=== PATIENT | female | born 1965 | race Caucasian/White ===

== ENCOUNTER 2017-04-04 15:24 | Inpatient (IN) | payer OTHER ==
[2017-04-04 17:31] VITALS: BMI 20.9
--- NOTE | 2017-04-04 20:06 | HP ---
COWS - Scale Resting Pulse: 0= [place] 80 or Below Sweatin= Chills/Flushing Restless Observation: 3= Extraneous Movement Pupil Size: 1= Pupils >than Normal Bone or Joint Aches: 2= Severe Diffuse Aches Runny Nose/ Eye Tearin= Runny Nose/Eyes GI Upset > 30mins: 1= Stomach Cramp Tremor Observation: 2= Slight Tremor Visible Yawning Observation: 2= >3x During Session Anxiety or Irritability: 2=Irritable/Anxious Goose Flesh Skin: 0=Smooth Skin COWS Score: 16 Admission [facility] Chief Complaint: withdrawal sx Allergies/Adverse Reactions: Allergies Allergy/AdvReac Type Severity Reaction Status Date / Time No Known Allergies Allergy Verified 04/04/17 18:24 History of Present Illness: 52 years old female with long history of opium nicotine dependence has diabetes weight loss and depression is admitted to detox Exam Limitations: No Limitations - Ebola screening Have you traveled outside of the country in the last 21 days: No (N) Have you had contact with anyone from an Ebola affected area: No Have you been sick,other than usual withdrawal symptoms: No Do you have a fever: No - Review of Systems Constitutional: Loss of Appetite, Changes in sleep, Unintentional Wgt. Loss EENT: reports: Blurred Vision (need eye glasses) Respiratory: reports: SOB with Exertion, Productive cough (yellowish) Cardiac: reports: No Symptoms Reported GI: reports: Constipated, Poor Appetite, Poor Fluid Intake, Abdominal cramping : reports: No Symptoms Reported Musculoskeletal: reports: Back Pain, Joint Pain, Muscle Pain, Neck Pain Integumentary: reports: Change in Color (both inner elbows) Neuro: reports: Seizure (12/2016 treated in er no treatment), Tremors Endocrine: reports: No Symptoms Reported Hematology: reports: No Symptoms Reported Psychiatric: reports: Judgement Intact, Orientated x3, Anxious, Depressed Other Systems: Reviewed and Negative Patient History - Patient Medical History Hx Anemia: No Hx Asthma: No Hx Chronic Obstructive Pulmonary Disease (COPD): Yes Hx Cancer: No Hx Cardiac Disorders: No Hx Congestive Heart Failure: No Hx Hypertension: No Hx Hypercholesterolemia: No Hx Pacemaker: No HX Cerebrovascular Accident: No Hx Seizures: Yes (no treatment) Hx Dementia: No Hx Diabetes: Yes (NIDDM) Hx Gastrointestinal Disorders: No Hx Liver Disease: No Hx Genitourinary Disorders: No Hx Sexually Transmitted Disorders: No Hx Renal Disease (ESRD): No Hx Thyroid Disease: No Hx Human Immunodeficiency Virus (HIV): No Hx Hepatitis C: No Hx Depression: Yes Hx Suicide Attempt: No Hx Bipolar Disorder: No Hx Schizophrenia: No - Patient Surgical History Past Surgical History: Yes Hx Neurologic Surgery: No Hx Cataract Extraction: No Hx Cardiac Surgery: No Hx Lung Surgery: No Hx Breast Surgery: No Hx Breast Biopsy: No Hx Abdominal Surgery: No Hx Appendectomy: No Hx Cholecystectomy: No Hx Genitourinary Surgery: No Hx Section: No Hx Orthopedic Surgery: No Hx Hysterectomy: Yes (1999) Other Surgical History: uterine ca/hysterectomy in 2002 Anesthesia Reaction: No - PPD History Previous Implant?: Yes Documented Results: Negative w/proof Implanted On Prior [facility] Admission?: Yes Date: 10/06/12 PPD to be Administered?: Yes - Reproductive History Patient is a Female of Child Bearing Age (11 -55 yrs old): Yes Last Menstrual Period: 04/04/00 Patient : No - Smoking Cessation Smoking history: Current every day smoker Have you smoked in the past 12 months: Yes Aproximately how many cigarettes per day: 20 Cigars Per Day: 0 Hx Chewing Tobacco Use: No Initiated information on smoking cessation: Yes 'Breaking Loose' booklet given: 04/04/17 - Substance & Tx. History Hx Alcohol Use: No Hx Substance Use: Yes Substance Use Type: Cocaine, Opiates Hx Substance Use Treatment: Yes (2012) - Substances Abused Heroin Route: Injection Frequency: Daily Amount used: 10 BAGS Age of first use: 30 Date of Last Use: 04/03/17 Cocaine Route: Injection Frequency: Daily Amount used: 1 BAG Age of first use: 51 Date of Last Use: 04/03/17 Family Disease History - Family Disease History Family Disease History: Diabetes: Mother, Heart Disease: Father (), Mother, Other: Father Admission Physical Exam BHS - Vital Signs Vital Signs: Vital Signs - 24 hr 04/04/17 17:29 Temperature 97.7 F Pulse Rate 70 Respiratory 16 Rate Blood Pressure 92/59 - Physical General Appearance: Yes: Appropriately Dressed, Moderate Distress, Thin, Tremorous, Irritable, Sweating, Anxious HEENTM: Yes: Hearing grossly Normal, Normal ENT Inspection, Normocephalic, Normal Voice Respiratory: Yes: Chest Non-Tender, No Respiratory Distress, No Accessory Muscle Use, Rhonchi, Hyperresonant Neck: Yes: Supple, Trachea in good position Breast: Yes: Breasts Symetrical Cardiology: Yes: Regular Rhythm, Regular Rate, S1, S2 Abdominal: Yes: Non Tender, Soft, Decreased BS Genitourinary: Yes: Within Normal Limits Musculoskeletal: Yes: full range of Motion, Gait Steady, Back pain, Muscle Pain Extremities: Yes: Normal Range of Motion, Non-Tender, Tremors Neurological: Yes: Fully Oriented, Alert, Motor Strength 5/5, Normal Response, Depressed Affect Integumentary: Yes: Warm, Track Pereira Lymphatic: Yes: Within Normal Limits - Diagnostic (1) Opioid dependence with withdrawal Current Visit: Yes Status: Acute (2) Constipation Current Visit: Yes Status: Chronic Qualifiers: Constipation type: slow transit constipation Qualified Code(s): K59.01 - Slow transit constipation (3) Weight loss Current Visit: Yes Status: Acute (4) Nicotine dependence Current Visit: Yes Status: Acute Qualifiers: Nicotine product type: cigarettes Substance use status: in withdrawal Qualified Code(s): F17.213 - Nicotine dependence, cigarettes, with withdrawal (5) Diabetes mellitus type II, controlled Current Visit: Yes Status: Chronic Qualifiers: Diabetes mellitus complication status: without complication Diabetes mellitus intermodal dispatcher insulin use: without senior care use Qualified Code(s): E11.9 - Type 2 diabetes mellitus without complications (6) COPD (chronic obstructive pulmonary disease) Current Visit: Yes Status: Chronic Qualifiers: COPD type: emphysema Emphysema type: panlobular Qualified Code(s): J43.1 - Panlobular emphysema (7) Depression (emotion) Current Visit: Yes Status: Suspected Qualifiers: Depression Type: dysthymia Qualified Code(s): F34.1 - Dysthymic disorder Cleared for Admission [facility] - Detox or Rehab [facility] Level of Care: Medically Managed Detox Regimen/Protocol: Methadone [facility] Breath Alcohol Content Breath Alcohol Content: 0 Urine Pregancy Test - Result Urine Test Results: Negative- NO Line Present Urine Drug Screen - Results Drug Screen Negative: No Urine Drug Screen Results: HAILEY-Cocaine, OPI-Opiates, AMP-Amphetamines, MET- Methamphetamine
[2017-04-04] MEDS ORDERED: NICOTINE POLACRILEX 4 MG GUM BC PRN (20:14)
[2017-04-04] MEDS ORDERED: MAG HYDROX/AL HYDROX/SIMETH 30 ML UNIT-DOSE CUP PO PRN (20:14)
[2017-04-04] MEDS ORDERED: METHADONE HCL 10 MG TABLET (FOR DETOX USE ONLY) PO ONE ×2 (20:14→23:00)
[2017-04-04] MEDS ORDERED: IBUPROFEN 400 MG TABLET (FP) PO PRN (20:14)
[2017-04-04] MEDS ORDERED: MAGNESIUM CITRATE 300 ML BOTTLE PO PRN (20:14)
[2017-04-04] MEDS ORDERED: ACETAMINOPHEN 325 MG TABLET (FP) PO PRN (20:14)
[2017-04-04] MEDS ORDERED: guaiFENesin/D-METHORPHAN HB 10 ML UNIT-DOSE CUPS PO PRN (20:14)
[2017-04-04] MEDS ORDERED: MENTHOL/PHENOL 1 EACH UD MM PRN (20:14)
[2017-04-04] MEDS ORDERED: P-EPHED 60MG/TRIPROLIDI 2.5MG TABLET PO PRN (20:14)
[2017-04-04] MEDS ORDERED: MAGNESIUM HYDROX 2400MG/30ML ORAL SUSPENSION 30 ML CUP PO PRN (20:14)
[2017-04-04] MEDS ORDERED: LOPERAMIDE HCL 2 MG CAPSULE PO PRN (20:14)
[2017-04-04] MEDS ORDERED: ALBUTEROL SO4 18 GM HFA INHALER IH PRN (20:16)
[2017-04-04] MEDS ORDERED: ALBUTEROL SO4 2.5/IPRATROPIUM 0.5 INH SOL 3 ML VIAL.NEB. NEB PRN (20:17)
[2017-04-04] MEDS: diazePAM 5 MG TABLET PO PRN (20:55)
[2017-04-04] MEDS: SENNOSIDES 8.6MG TABLET (FP) PO SCH ×2 (20:56→23:18)
[2017-04-04] MEDS ORDERED: INSULIN SLIDING SCALE (NOVOLOG) 1 VIAL SQ SCH (22:00)
[2017-04-04] MEDS: THIAMINE HCL 100 MG TABLET (FP) PO SCH (22:17)
[2017-04-04 23:07] LABS: URINE APPEARANCE SLCLOUDY; URINE BILIRUBIN NEGATIVE (NEGATIVE); URINE BLOOD NEGATIVE (NEGATIVE); URINE COLOR AMBER; URINE GLUCOSE (UA) NEGATIVE (NEGATIVE); URINE KETONE NEGATIVE (NEGATIVE); URINE NITRITE NEGATIVE (NEGATIVE); URINE UROBILINOGEN 4.0 E.U/dl mg/dL (0.2-1.0)
[2017-04-04 23:14] LABS: URINE PROTEIN 1+ (NEGATIVE)
[2017-04-04 23:16] LABS: URINE HYALINE CAST 2 /lpf; URINE MUCUS FEW; URINE RBC 9 /hpf (0-3); URINE WBC 5 /hpf (3-5)
[2017-04-05] MEDS: diazePAM 5 MG TABLET PO PRN ×3 (05:33→15:50)
[2017-04-05] MEDS: INSULIN SLIDING SCALE (NOVOLOG) 1 VIAL SQ SCH ×2 (07:44→17:30)
[2017-04-05] MEDS: metFORMIN HCL 500 MG TABLET (FP) PO SCH ×2 (07:44→17:29)
[2017-04-05] MEDS ORDERED: IBUPROFEN 600 MG TABLET (FP) PO PRN (09:55)
[2017-04-05] MEDS: PRENATAL VITAMINS W/ FOLIC ACID TABLET (FP) PO SCH (09:58)
[2017-04-05] MEDS: CYCLOBENZAPRINE HCL 10 MG TABLET (FP) PO PRN (09:58)
[2017-04-05] MEDS ORDERED: METHADONE HCL 10 MG TABLET (FOR DETOX USE ONLY) PO ONE (10:00)
[2017-04-05] MEDS: NICOTINE 21 MG/24 HOURS TOPICAL PATCH TD SCH (10:02)
[2017-04-05 10:17] LABS: MCH 27.3 pg (25.7-33.7); MCHC 32.3 g/dl (32.0-36.0); MEAN CELL VOLUME 84.5 fl (80-96); MEAN PLT VOLUME 9.2 fl (7.5-11.1); PLATELET COUNT 262 K/MM3 (134-434); RDW 15.3 % (11.6-15.6); WHITE BLOOD COUNT 5.6 K/mm3 (4.0-10.0)
[2017-04-05 10:24] LABS: ALBUMIN 2.9 g/dl (3.4-5.0); ALK PHOS 71 U/L (45-117); ANION GAP 9 (8-16); BILIRUBIN,TOTAL 0.3 mg/dL (0.2-1.0); CALCIUM 8.8 mg/dL (8.5-10.1); CO2 30 mmol/L (21-32); CREATININE 0.8 mg/dL (0.55-1.02); GLUCOSE,RANDOM 110 mg/dL (74-106); SGOT/AST 19 U/L (15-37); SGPT/ALT 20 U/L (12-78); TOT PROT 6.6 g/dl (6.4-8.2)
[2017-04-05 10:55] LABS: URINE LEUK ESTERASE Negative (NEGATIVE)
--- NOTE | 2017-04-05 12:05 | PN ---
BHS COWS - Scale Resting Pulse: 1= [place] 81-100 Sweatin=Flushed/Facial Moisture Restless Observation: 1= Difficult to Sit Still Pupil Size: 0= Normal to Room Light Bone or Joint Aches: 2= Severe Diffuse Aches Runny Nose/ Eye Tearin= Runny Nose/Eyes GI Upset > 30mins: 2= Nausea/Diarrhea Tremor Observation of Outstretched Hands: 2= Slight Tremor Visible Yawning Observation: 2= >3x During Session Anxiety or Irritability: 2=Irritable/Anxious Goose Flesh Skin: 3=Piloerection COWS Score: 19 S Progress Note (SOAP) Subjective: body aches sweats shakes irritable agitation restless anxiety interrupted sleep Objective: 04/05/17 12:04 Vital Signs Temperature 97.3 F L 04/05/17 09:33 Pulse Rate 94 H 04/05/17 09:33 Respiratory Rate 16 04/05/17 09:33 Blood Pressure 112/73 04/05/17 09:33 O2 Sat by Pulse Oximetry (%) Laboratory Tests 04/04/17 04/04/17 04/05/17 18:32 23:00 05:31 WBC RBC Hgb Hct MCV MCH MCHC RDW Plt Count MPV Sodium Potassium Chloride Carbon Dioxide Anion Gap BUN Creatinine Creat Clearance w eGFR POC Glucometer 147 114 Random Glucose Calcium Total Bilirubin AST ALT Alkaline Phosphatase Total Protein Albumin Urine Color [place] Urine Appearance Slcloudy Urine pH 5.0 Ur Specific [place] 1.033 Urine Protein 1+ H Urine Glucose (UA) Negative Urine Ketones Negative Urine Blood Negative Urine Nitrite Negative Urine Bilirubin Negative Urine Urobilinogen 4.0 e.u/dl H Ur Leukocyte Esterase Negative Urine WBC (Auto) 5 Urine RBC (Auto) 9 Ur Epithelial Cells Few Hyaline Casts 2 Urine Mucus Few RPR Titer 04/05/17 04/05/17 04/05/17 07:00 07:00 07:00 WBC 5.6 RBC 4.65 Hgb 12.7 Hct 39.4 MCV 84.5 MCH 27.3 MCHC 32.3 RDW 15.3 D Plt Count 262 D MPV 9.2 D Sodium 142 Potassium 4.1 Chloride 103 Carbon Dioxide 30 Anion Gap 9 BUN 14 Creatinine 0.8 Creat Clearance w eGFR > 60 POC Glucometer Random Glucose 110 H Calcium 8.8 Total Bilirubin 0.3 D AST 19 D ALT 20 Alkaline Phosphatase 71 Total Protein 6.6 Albumin 2.9 L Urine Color Urine Appearance Urine pH Ur Specific [place] Urine Protein Urine Glucose (UA) Urine Ketones Urine Blood Urine Nitrite Urine Bilirubin Urine Urobilinogen Ur Leukocyte Esterase Urine WBC (Auto) Urine RBC (Auto) Ur Epithelial Cells Hyaline Casts Urine Mucus RPR Titer Nonreactive aaox3 ambulating no acute distress Assessment: 04/05/17 12:04 withdrawal sx Plan: continue detox increase fluids flexiril prn motrin 600mg lidocaine patch
[2017-04-05] MEDS ORDERED: LIDOCAINE 5% TOPICAL PATCH TP ONE (12:45)
--- NOTE | 2017-04-05 13:02 | PN ---
BHS Progress Note Note: Medicine Technologist approached patient bedside for psychiatric consultation. Pt. refused to be seen by Psychiatric Nurse Practitioner.
[2017-04-05] MEDS ORDERED: INSULIN (NOVOLOG) ASPART 100 UNITS/ML 10ML VIAL ONE (16:44)
[2017-04-05] MEDS: SENNOSIDES 8.6MG TABLET (FP) PO SCH (22:37)
[2017-04-05] MEDS: LIDOCAINE PATCH REMOVAL MC SCH (22:37)
[2017-04-05] MEDS: THIAMINE HCL 100 MG TABLET (FP) PO SCH (22:37)
[2017-04-06] MEDS: metFORMIN HCL 500 MG TABLET (FP) PO SCH ×2 (07:19→17:17)
[2017-04-06] MEDS: INSULIN SLIDING SCALE (NOVOLOG) 1 VIAL SQ SCH ×2 (07:19→17:18)
--- NOTE | 2017-04-06 07:55 | EKG ---
Test Reason : Blood Pressure : / mmHG Vent. Rate : 075 BPM Atrial Rate : 075 BPM P-R Int : 106 ms QRS Dur : 098 ms QT Int : 408 ms P-R-T Axes : 053 076 073 degrees QTc Int : 455 ms SINUS RHYTHM WITH SHORT CO WITH PREMATURE ATRIAL COMPLEXES RSR' OR QR PATTERN IN V1 SUGGESTS RIGHT VENTRICULAR CONDUCTION DELAY BORDERLINE ECG NO PREVIOUS ECGS AVAILABLE Confirmed by MD Tucker Daniel [id number]) on 04/05/2017 3:03:33 PM Also confirmed by MD Tucker Daniel ([id number]), avid editor KATE CASTILLO ([id number]) on 04/06/2017 7:55:37 AM Also confirmed by MD Tucker Daniel ([id number]), avid editor KATE CASTILLO ([id number]) on 04/06/2017 7:59:20 AM Referred By: Jane Kovacs Confirmed By:Kate Tucker MD
--- NOTE | 2017-04-06 07:56 | EKG ---
Test Reason : Blood Pressure : / mmHG Vent. Rate : 076 BPM Atrial Rate : 076 BPM P-R Int : 096 ms QRS Dur : 086 ms QT Int : 382 ms P-R-T Axes : 007 068 064 degrees QTc Int : 429 ms SINUS RHYTHM WITH SHORT [place] OTHERWISE NORMAL ECG WHEN COMPARED WITH ECG OF 04-APR-2017 21:03, PREMATURE ATRIAL COMPLEXES ARE NO LONGER PRESENT RSR' PATTERN IN V1 IS NO LONGER PRESENT Confirmed by MD Tucker Daniel ([id number]) on 04/05/2017 2:59:27 PM Also confirmed by MD Tucker Daniel [id number]), online editor KATE CASTILLO ([id number]) on 04/06/2017 7:55:46 AM Referred By: Jane Kovacs Confirmed By:Kate Tucker MD
[2017-04-06] MEDS ORDERED: METHADONE HCL 5 MG TABLET (FOR DETOX USE ONLY) PO ONE (10:00)
[2017-04-06] MEDS: PRENATAL VITAMINS W/ FOLIC ACID TABLET (FP) PO SCH (10:46)
[2017-04-06] MEDS: diazePAM 5 MG TABLET PO PRN ×2 (10:47→22:27)
[2017-04-06] MEDS: NICOTINE 21 MG/24 HOURS TOPICAL PATCH TD SCH (10:49)
[2017-04-06] MEDS: LIDOCAINE 5% TOPICAL PATCH TP SCH (10:49)
--- NOTE | 2017-04-06 10:59 | PN ---
S CIWA - CIWA Score Nausea/Vomitin-No Nausea/No Vomiting Muscle Tremors: 4-Moderate,w/Arms Extend Anxiety: 4-Mod. Anxious/Guarded Agitation: 3 Paroxysmal Sweats: 3 Orientation: 0-Oriented Tacttile Disturbances: 0-None Auditory Disturbances: 0-None Visual Disturbances: 0-None Headache: 0-None Present CIWA-Ar Total Score: 14 BHS Progress Note (SOAP) Subjective: shakes sweats diarrhea Objective: 04/06/17 10:57 Vital Signs Period Temp Pulse Resp BP Sys/Hoyt Pulse Ox Last 24 Hr 97.0 F-97.9 F 66-104 16-20 98-112/63-68 Laboratory Tests 04/04/17 04/04/17 04/05/17 18:32 23:00 05:31 WBC RBC Hgb Hct MCV MCH MCHC RDW Plt Count MPV Sodium Potassium Chloride Carbon Dioxide Anion Gap BUN Creatinine Creat Clearance w eGFR POC Glucometer 147 114 Random Glucose Calcium Total Bilirubin AST ALT Alkaline Phosphatase Total Protein Albumin Urine Color [place] Urine Appearance Slcloudy Urine pH 5.0 Ur Specific [place] 1.033 Urine Protein 1+ H Urine Glucose (UA) Negative Urine Ketones Negative Urine Blood Negative Urine Nitrite Negative Urine Bilirubin Negative Urine Urobilinogen 4.0 e.u/dl H Ur Leukocyte Esterase Negative Urine WBC (Auto) 5 Urine RBC (Auto) 9 Ur Epithelial Cells Few Hyaline Casts 2 Urine Mucus Few RPR Titer 04/05/17 04/05/17 04/05/17 07:00 07:00 07:00 WBC 5.6 RBC 4.65 Hgb 12.7 Hct 39.4 MCV 84.5 MCH 27.3 MCHC 32.3 RDW 15.3 D Plt Count 262 D MPV 9.2 D Sodium 142 Potassium 4.1 Chloride 103 Carbon Dioxide 30 Anion Gap 9 BUN 14 Creatinine 0.8 Creat Clearance w eGFR > 60 POC Glucometer Random Glucose 110 H Calcium 8.8 Total Bilirubin 0.3 D AST 19 D ALT 20 Alkaline Phosphatase 71 Total Protein 6.6 Albumin 2.9 L Urine Color Urine Appearance Urine pH Ur Specific [place] Urine Protein Urine Glucose (UA) Urine Ketones Urine Blood Urine Nitrite Urine Bilirubin Urine Urobilinogen Ur Leukocyte Esterase Urine WBC (Auto) Urine RBC (Auto) Ur Epithelial Cells Hyaline Casts Urine Mucus RPR Titer Nonreactive 04/05/17 04/06/17 16:27 07:18 WBC RBC Hgb Hct MCV MCH MCHC RDW Plt Count MPV Sodium Potassium Chloride Carbon Dioxide Anion Gap BUN Creatinine Creat Clearance w eGFR POC Glucometer 300 100 Random Glucose Calcium Total Bilirubin AST ALT Alkaline Phosphatase Total Protein Albumin Urine Color Urine Appearance Urine pH Ur Specific [place] Urine Protein Urine Glucose (UA) Urine Ketones Urine Blood Urine Nitrite Urine Bilirubin Urine Urobilinogen Ur Leukocyte Esterase Urine WBC (Auto) Urine RBC (Auto) Ur Epithelial Cells Hyaline Casts Urine Mucus RPR Titer aaox3 ambulating no acute distress Assessment: 04/06/17 10:58 withdrawal sx Plan: continue detox increase fluids immodium prn
--- NOTE | 2017-04-06 11:03 | PN ---
BHS COWS - Scale Resting Pulse: 2= [place] 101-120 Sweatin=Flushed/Facial Moisture Restless Observation: 1= Difficult to Sit Still Pupil Size: 0= Normal to Room Light Bone or Joint Aches: 2= Severe Diffuse Aches Runny Nose/ Eye Tearin= Nasal Congestion GI Upset > 30mins: 2= Nausea/Diarrhea Tremor Observation of Outstretched Hands: 2= Slight Tremor Visible Yawning Observation: 2= >3x During Session Anxiety or Irritability: 2=Irritable/Anxious Goose Flesh Skin: 3=Piloerection COWS Score: 19 BHS Progress Note (SOAP) Subjective: sweats chills body aches interrupted sleep agitation nausea Objective: 04/06/17 11:02 Vital Signs Temperature 97.9 F 04/06/17 10:15 Pulse Rate 104 H 04/06/17 10:15 Respiratory Rate 20 04/06/17 10:15 Blood Pressure 112/68 04/06/17 10:15 O2 Sat by Pulse Oximetry (%) Laboratory Tests 04/04/17 04/04/17 04/05/17 18:32 23:00 05:31 WBC RBC Hgb Hct MCV MCH MCHC RDW Plt Count MPV Sodium Potassium Chloride Carbon Dioxide Anion Gap BUN Creatinine Creat Clearance w eGFR POC Glucometer 147 114 Random Glucose Calcium Total Bilirubin AST ALT Alkaline Phosphatase Total Protein Albumin Urine Color [place] Urine Appearance Slcloudy Urine pH 5.0 Ur Specific [place] 1.033 Urine Protein 1+ H Urine Glucose (UA) Negative Urine Ketones Negative Urine Blood Negative Urine Nitrite Negative Urine Bilirubin Negative Urine Urobilinogen 4.0 e.u/dl H Ur Leukocyte Esterase Negative Urine WBC (Auto) 5 Urine RBC (Auto) 9 Ur Epithelial Cells Few Hyaline Casts 2 Urine Mucus Few RPR Titer 04/05/17 04/05/17 04/05/17 07:00 07:00 07:00 WBC 5.6 RBC 4.65 Hgb 12.7 Hct 39.4 MCV 84.5 MCH 27.3 MCHC 32.3 RDW 15.3 D Plt Count 262 D MPV 9.2 D Sodium 142 Potassium 4.1 Chloride 103 Carbon Dioxide 30 Anion Gap 9 BUN 14 Creatinine 0.8 Creat Clearance w eGFR > 60 POC Glucometer Random Glucose 110 H Calcium 8.8 Total Bilirubin 0.3 D AST 19 D ALT 20 Alkaline Phosphatase 71 Total Protein 6.6 Albumin 2.9 L Urine Color Urine Appearance Urine pH Ur Specific [place] Urine Protein Urine Glucose (UA) Urine Ketones Urine Blood Urine Nitrite Urine Bilirubin Urine Urobilinogen Ur Leukocyte Esterase Urine WBC (Auto) Urine RBC (Auto) Ur Epithelial Cells Hyaline Casts Urine Mucus RPR Titer Nonreactive 04/05/17 04/06/17 16:27 07:18 WBC RBC Hgb Hct MCV MCH MCHC RDW Plt Count MPV Sodium Potassium Chloride Carbon Dioxide Anion Gap BUN Creatinine Creat Clearance w eGFR POC Glucometer 300 100 Random Glucose Calcium Total Bilirubin AST ALT Alkaline Phosphatase Total Protein Albumin Urine Color Urine Appearance Urine pH Ur Specific [place] Urine Protein Urine Glucose (UA) Urine Ketones Urine Blood Urine Nitrite Urine Bilirubin Urine Urobilinogen Ur Leukocyte Esterase Urine WBC (Auto) Urine RBC (Auto) Ur Epithelial Cells Hyaline Casts Urine Mucus RPR Titer aaox3 ambulating no acute distress Assessment: 04/06/17 11:02 withdrawal sx Plan: continue detox increase fluids flexiril prn clonidine 0.1 daily with parameters lidocaine patch motrin prn kelly aguilar
[2017-04-06] MEDS ORDERED: cloNIDine HCL 0.1 MG TABLET PO ONE (11:04)
[2017-04-06] MEDS: CYCLOBENZAPRINE HCL 10 MG TABLET (FP) PO PRN ×2 (13:32→22:26)
--- NOTE | 2017-04-06 16:13 | CONSULT ---
[facility] Psychiatric Consult - Data Date of interview: 04/06/17 Admission source: [facility] Identifying data: Patient is approached at bedside for psychiatric evaluation ( as requested).Ms Iniguez declines to talk to this health technical writer.This is the FOURTH attempt to interview this patient since 04/05/17.Nursing staff is made aware.
[2017-04-06] MEDS ORDERED: INSULIN (NOVOLOG) ASPART 100 UNITS/ML 10ML VIAL ONE (16:34)
[2017-04-06] MEDS: LIDOCAINE PATCH REMOVAL MC SCH (22:25)
[2017-04-06] MEDS: THIAMINE HCL 100 MG TABLET (FP) PO SCH (22:26)
[2017-04-06] MEDS: SENNOSIDES 8.6MG TABLET (FP) PO SCH (22:26)
[2017-04-07] MEDS: diazePAM 5 MG TABLET PO PRN ×2 (05:59→10:53)
[2017-04-07] MEDS: metFORMIN HCL 500 MG TABLET (FP) PO SCH ×2 (07:49→17:31)
[2017-04-07] MEDS: INSULIN SLIDING SCALE (NOVOLOG) 1 VIAL SQ SCH ×2 (07:49→17:23)
[2017-04-07] MEDS ORDERED: METHADONE HCL 5 MG TABLET (FOR DETOX USE ONLY) PO ONE (10:00)
[2017-04-07] MEDS: CYCLOBENZAPRINE HCL 10 MG TABLET (FP) PO PRN ×2 (10:52→22:26)
[2017-04-07] MEDS: cloNIDine HCL 0.1 MG TABLET PO SCH (10:52)
[2017-04-07] MEDS: PRENATAL VITAMINS W/ FOLIC ACID TABLET (FP) PO SCH (10:52)
[2017-04-07] MEDS: LIDOCAINE 5% TOPICAL PATCH TP SCH (10:53)
[2017-04-07] MEDS: NICOTINE 21 MG/24 HOURS TOPICAL PATCH TD SCH (10:53)
--- NOTE | 2017-04-07 11:24 | PN ---
BHS Progress Note (SOAP) Subjective: body aches sweats irritable agitation Objective: 04/07/17 11:24 Vital Signs Temperature 96 F L 04/07/17 09:58 Pulse Rate 82 04/07/17 09:58 Respiratory Rate 16 04/07/17 09:58 Blood Pressure 92/67 04/07/17 09:58 O2 Sat by Pulse Oximetry (%) aaox3 ambulating no acute distress Assessment: 04/07/17 11:24 withdrawal sx Plan: continue detox increase fluids
[2017-04-07] MEDS: SENNOSIDES 8.6MG TABLET (FP) PO SCH (22:26)
[2017-04-07] MEDS: THIAMINE HCL 100 MG TABLET (FP) PO SCH (22:27)
[2017-04-07] MEDS: LIDOCAINE PATCH REMOVAL MC SCH (22:27)
[2017-04-08] MEDS: INSULIN SLIDING SCALE (NOVOLOG) 1 VIAL SQ SCH (08:20)
[2017-04-08] MEDS ORDERED: hydrOXYzine PAMOATE 50 MG CAPSULE (FP) PO PRN (09:28)
--- NOTE | 2017-04-08 09:40 | DS ---
[facility] Detox Discharge Summary Admission Date: 04/04/17 Discharge Date: 04/08/17 - History Present History: Cocaine Dependence, Opioid Dependence, Sedative Dependence - Physical Exam Results Vital Signs: Vital Signs Temperature 96.6 F L 04/08/17 06:00 Pulse Rate 65 04/08/17 06:00 Respiratory Rate 16 04/08/17 06:00 Blood Pressure 95/61 04/08/17 06:00 O2 Sat by Pulse Oximetry (%) - Treatment Hospital Course: Detox Protocol Followed, Detoxed Safely, Responded well, Discharged Condition Good, Rehab Referral Accepted - Medication Discharge Medications: Ambulatory Orders Lorazepam [Ativan] 2 mg PO PRN PRN 10/03/12 Metformin HCl [Glucophage] 500 mg PO BID 10/03/12 - Diagnosis (1) Cocaine dependence Current Visit: Yes Status: Chronic (2) DM Diabetes mellitus type 2 Current Visit: Yes Status: Chronic (3) Opioid dependence Current Visit: Yes Status: Chronic (4) Sedative dependence Current Visit: Yes Status: Chronic (5) Weight decreased Current Visit: No Status: Active (6) ca of uterus,s/p hysterctomy,radiation and chemotherapy Current Visit: No Status: Active (7) Nicotine dependence Current Visit: Yes Status: Chronic Qualifiers: Nicotine product type: cigarettes Substance use status: uncomplicated Qualified Code(s): F17.210 - Nicotine dependence, cigarettes, uncomplicated (8) Opioid dependence with withdrawal Current Visit: Yes Status: Chronic (9) Weight loss Current Visit: No Status: Acute (10) COPD (chronic obstructive pulmonary disease) Current Visit: No Status: Chronic Qualifiers: COPD type: emphysema Emphysema type: panlobular Qualified Code(s): J43.1 - Panlobular emphysema (11) Constipation Current Visit: No Status: Chronic Qualifiers: Constipation type: slow transit constipation Qualified Code(s): K59.01 - Slow transit constipation (12) Diabetes mellitus type II, controlled Current Visit: No Status: Chronic Qualifiers: Diabetes mellitus complication status: without complication Diabetes mellitus termite renewal inspector insulin use: without termite renewal inspector use Qualified Code(s): E11.9 - Type 2 diabetes mellitus without complications (13) Depression (emotion) Current Visit: No Status: Suspected Qualifiers: Depression Type: dysthymia Qualified Code(s): F34.1 - Dysthymic disorder - AMA Did Patient Leave Against Medical Advice: No (going to her suboxone clinic today )
[2017-04-08] MEDS ORDERED: METHADONE HCL 10 MG TABLET (FOR DETOX USE ONLY) PO ONE (10:00)
[2017-04-08] MEDS: cloNIDine HCL 0.1 MG TABLET PO SCH (10:08)
[2017-04-08] MEDS: metFORMIN HCL 500 MG TABLET (FP) PO SCH (10:09)
[2017-04-08] MEDS: NICOTINE 21 MG/24 HOURS TOPICAL PATCH TD SCH (10:09)
[2017-04-08] MEDS: LIDOCAINE 5% TOPICAL PATCH TP SCH (10:09)
[2017-04-08] MEDS: PRENATAL VITAMINS W/ FOLIC ACID TABLET (FP) PO SCH (10:10)
[2017-04-08 10:24] VITALS: BP 82/62; PULSE 89; TEMP 97.9
[2017-04-09] MEDS ORDERED: METHADONE HCL 5 MG TABLET (FOR DETOX USE ONLY) PO ONE (06:00)
== END 2017-04-08 10:24 | disposition home or self-care (01) | DRG 773 ==
LOC: YASAS 15:24 → Y6N 20:19
PROVIDERS: ADMIT Internal Medicine; ATTEND Internal Medicine
PROC: HZ2ZZZZ Detoxification Services for Substance Abuse Treatment (ICD-10-PCS; principal; 2017-04-04)
DX: F11.23 Opioid dependence with withdrawal (principal); F13.230 Sedative, hypnotic or anxiolytic dependence with withdrawal, uncomplicated; F14.20 Cocaine dependence, uncomplicated; F17.210 Nicotine dependence, cigarettes, uncomplicated; F34.1 Dysthymic disorder; E11.9 Type 2 diabetes mellitus without complications; Z79.84 Long term (current) use of oral hypoglycemic drugs; J43.1 Panlobular emphysema; K59.01 Slow transit constipation; R63.4 Abnormal weight loss; Z68.21 Body mass index [BMI] 21.0-21.9, adult; Z85.41 Personal history of malignant neoplasm of cervix uteri; Z90.710 Acquired absence of both cervix and uterus
CPT/HCPCS: 36415; 80053; 81003; 81015; 85027; 86593; 93005; 93010

== ENCOUNTER 2017-06-28 11:27 | Inpatient (IN) | payer OTHER ==
[2017-06-28 11:56] VITALS: BMI 22.3
--- NOTE | 2017-06-28 12:13 | HP ---
COWS - Scale Resting Pulse: 1= [place] 81-100 Sweatin=Flushed/Facial Moisture Restless Observation: 3= Extraneous Movement Pupil Size: 2= Moderately Dilated Bone or Joint Aches: 2= Severe Diffuse Aches Runny Nose/ Eye Tearin= Runny Nose/Eyes GI Upset > 30mins: 3= Vomiting/Diarrhea Tremor Observation: 2= Slight Tremor Visible Yawning Observation: 2= >3x During Session Anxiety or Irritability: 2=Irritable/Anxious Goose Flesh Skin: 0=Smooth Skin COWS Score: 21 Admission ROS S - HPI Chief Complaint: i need help to stop using heroin and cocaine Allergies/Adverse Reactions: Allergies Allergy/AdvReac Type Severity Reaction Status Date / Time codeine Allergy Severe Swelling Verified 06/28/17 12:06 History of Present Illness: this 52 years old female with heroin and cocaine dependence,seeking detox, withdrawal symptom,last detox [facility] 04/04/17 to 04/08/17 seizure last 1 week ago hepatitis c arthritis chronic low back pain type 2 dm carcinoma of uterus s/p hysterectomy,radiation and chemotherapy longest period of sobriety 7 years weight loss Exam Limitations: No Limitations - Ebola screening Have you been sick,other than usual withdrawal symptoms: No - Review of Systems Constitutional: Chills, Loss of Appetite, Malaise, Night Sweats, Changes in sleep, Weakness, Unintentional Wgt. Loss EENT: reports: Tearing, Nose Congestion Respiratory: reports: No Symptoms reported, Other (hisotry of [place] on albuterol inhaler) Cardiac: reports: No Symptoms Reported GI: reports: Diarrhea, Nausea, Vomiting, Abdominal cramping : reports: No Symptoms Reported Musculoskeletal: reports: Back Pain, Joint Pain, Muscle Pain, Joint Stiffness Integumentary: reports: Dryness Neuro: reports: Headache, Tremors, Weakness Endocrine: reports: No Symptoms Reported Hematology: reports: No Symptoms Reported Psychiatric: reports: Anxious, Depressed Patient History - Patient Medical History Hx Anemia: No Hx Asthma: Yes (on albuterol inhaler) Hx Chronic Obstructive Pulmonary Disease (COPD): Yes Hx Cancer: No Hx Cardiac Disorders: No Hx Congestive Heart Failure: No Hx Hypertension: No Hx Hypercholesterolemia: No Hx Pacemaker: No HX Cerebrovascular Accident: No Hx Seizures: Yes (no treatment last 1 week ago) Hx Dementia: No Hx Diabetes: Yes (NIDDM) Hx Gastrointestinal Disorders: No Hx Liver Disease: No Hx Genitourinary Disorders: Yes (cancer of uterus s/p hysterctomy,radiation and chemotheraoy) Hx Sexually Transmitted Disorders: No Hx Renal Disease (ESRD): No Hx Thyroid Disease: No Hx Human Immunodeficiency Virus (HIV): No Hx Hepatitis C: No Hx Depression: Yes (anxiety,insomnia) Hx Suicide Attempt: No Hx Bipolar Disorder: No Hx Schizophrenia: No Other Medical History: no suicidal,no homicidal - Patient Surgical History Past Surgical History: Yes Hx Neurologic Surgery: No Hx Cataract Extraction: No Hx Cardiac Surgery: No Hx Lung Surgery: No Hx Breast Surgery: No Hx Breast Biopsy: No Hx Abdominal Surgery: No Hx Appendectomy: No Hx Cholecystectomy: No Hx Genitourinary Surgery: No Hx Section: No Hx Orthopedic Surgery: No Hx Hysterectomy: Yes (1999) Other Surgical History: uterine ca/hysterectomy in 2002 Anesthesia Reaction: No - PPD History Previous Implant?: Yes Documented Results: Negative w/proof Implanted On Prior [facility] Admission?: Yes Date: 04/06/17 Results: 0 mm PPD to be Administered?: No - Reproductive History Last Menstrual Period: 04/04/00 Patient : No - Smoking Cessation Smoking history: Current every day smoker Have you smoked in the past 12 months: Yes Aproximately how many cigarettes per day: 20 Cigars Per Day: 0 Hx Chewing Tobacco Use: No Initiated information on smoking cessation: Yes 'Breaking Loose' booklet given: 06/28/17 - Substance & Tx. History Hx Alcohol Use: No Hx Substance Use: Yes Substance Use Type: Cocaine, Heroin Hx Substance Use Treatment: Yes ([facility] 04/04/17 to 04/08/17) - Substances Abused Heroin Route: Injection Frequency: Daily Amount used: 20 BAGS Age of first use: 34 Date of Last Use: 06/27/17 Cocaine Route: Injection Frequency: 1-2 times per week Amount used: $10 Age of first use: 34 Date of Last Use: 06/27/17 Family Disease History - Family Disease History Family Disease History: Diabetes: Mother, Heart Disease: Father (), Mother, Other: Father Admission Physical Exam BHS - Vital Signs Vital Signs: Vital Signs - 24 hr 06/28/17 11:54 Temperature 101.2 F H Pulse Rate 96 H Respiratory 18 Rate Blood Pressure 105/66 - Physical General Appearance: Yes: Moderate Distress, Tremorous, Irritable, Sweating, Anxious HEENTM: Yes: Normocephalic, MANUEL, Pharynx Normal Respiratory: Yes: Lungs Clear, Normal Breath Sounds, No Respiratory Distress Neck: Yes: Within Normal Limits, Supple, Trachea in good position Breast: Yes: Breast Exam Deferred Cardiology: Yes: Within Normal Limits, Regular Rhythm, Regular Rate, S1, S2 Abdominal: Yes: Within Normal Limits, Normal Bowel Sounds, Non Tender, Soft, Surgical Scar (s/p hysterectomy for cancer of uterus) Genitourinary: Yes: Within Normal Limits Back: Yes: Normal Inspection, Muscle Spasm Musculoskeletal: Yes: Back pain, Joint Stiffness, Muscle Pain Extremities: Yes: Tremors Neurological: Yes: dipper clock and watch hands II-XII NML intact, Alert, Motor Strength 5/5 Integumentary: Yes: Dry Lymphatic: Yes: Within Normal Limits - Diagnostic (1) Opioid dependence with withdrawal Current Visit: No Status: Chronic (2) ca of uterus,s/p hysterctomy,radiation and chemotherapy Current Visit: No Status: Active (3) Weight loss Current Visit: No Status: Acute (4) Cocaine dependence Current Visit: No Status: Chronic (5) DM Diabetes mellitus type 2 Current Visit: No Status: Chronic (6) Nicotine dependence Current Visit: No Status: Chronic Qualifiers: Nicotine product type: cigarettes Substance use status: uncomplicated Qualified Code(s): F17.210 - Nicotine dependence, cigarettes, uncomplicated (7) Insomnia Current Visit: Yes Status: Acute (8) Anxiety and depression Current Visit: Yes Status: Acute Cleared for Admission [facility] - Detox or Rehab [facility] Level of Care: Medically Managed Detox Regimen/Protocol: Methadone [facility] Breath Alcohol Content Breath Alcohol Content: 0 Urine Pregancy Test - Result Urine Test Results: Negative- NO Line Present Urine Drug Screen - Results Drug Screen Negative: No Urine Drug Screen Results: HAILEY-Cocaine, OPI-Opiates
[2017-06-28] MEDS ORDERED: IBUPROFEN 400 MG TABLET (FP) PO PRN (12:31)
[2017-06-28] MEDS ORDERED: P-EPHED 60MG/TRIPROLIDI 2.5MG TABLET PO PRN (12:31)
[2017-06-28] MEDS ORDERED: MAGNESIUM CITRATE 300 ML BOTTLE PO PRN (12:31)
[2017-06-28] MEDS ORDERED: hydrOXYzine PAMOATE 25 MG CAPSULE (FP) PO PRN (12:31)
[2017-06-28] MEDS ORDERED: MAG HYDROX/AL HYDROX/SIMETH 30 ML UNIT-DOSE CUP PO PRN (12:31)
[2017-06-28] MEDS ORDERED: LOPERAMIDE HCL 2 MG CAPSULE PO PRN (12:31)
[2017-06-28] MEDS ORDERED: MENTHOL/PHENOL 1 EACH UD MM PRN (12:31)
[2017-06-28] MEDS ORDERED: guaiFENesin/D-METHORPHAN HB 10 ML UNIT-DOSE CUPS PO PRN (12:31)
[2017-06-28] MEDS ORDERED: MAGNESIUM HYDROX 2400MG/30ML ORAL SUSPENSION 30 ML CUP PO PRN (12:31)
[2017-06-28] MEDS ORDERED: ALBUTEROL SO4 18 GM HFA INHALER IH PRN (12:35)
[2017-06-28] MEDS ORDERED: METHADONE HCL 10 MG TABLET (FOR DETOX USE ONLY) PO ONE ×2 (14:15→23:00)
[2017-06-28] MEDS: NICOTINE 14 MG/24 HOURS TOPICAL PATCH TD SCH (14:39)
[2017-06-28] MEDS: diazePAM 5 MG TABLET PO PRN ×2 (14:41→22:09)
[2017-06-28] MEDS: ACETAMINOPHEN 325 MG TABLET (FP) PO PRN ×2 (15:54→22:59)
--- NOTE | 2017-06-28 15:59 | EKG ---
Test Reason : Blood Pressure : / mmHG Vent. Rate : 080 BPM Atrial Rate : 080 BPM P-R Int : 100 ms QRS Dur : 094 ms QT Int : 368 ms P-R-T Axes : 016 072 068 degrees QTc Int : 424 ms SINUS RHYTHM WITH SHORT [place] INCOMPLETE RIGHT BUNDLE BRANCH BLOCK BORDERLINE ECG WHEN COMPARED WITH ECG OF 05-APR-2017 09:44, INCOMPLETE RIGHT BUNDLE BRANCH BLOCK IS NOW PRESENT Confirmed by MD Garrett, Roderick ([id number]) on 06/28/2017 3:59:42 PM Referred By: Confirmed By:Roderick Tucker MD
[2017-06-28] MEDS: metFORMIN HCL 500 MG TABLET (FP) PO SCH (17:39)
--- NOTE | 2017-06-28 18:14 | PN ---
BHS Progress Note Note: Psychiatric Nurse Practitioner note: Scroll Assembler approached patient 3 times for a psychiatric consultation and patient was difficult to awake. Pt. was then approached while awake and agreed to speak to psychiatric nurse practitioner but immediately closed her eyes and refused to answer any questions.
[2017-06-28] MEDS: THIAMINE HCL 100 MG TABLET (FP) PO SCH (22:09)
[2017-06-28 23:06] LABS: URINE APPEARANCE CLEAR; URINE BILIRUBIN NEGATIVE (NEGATIVE); URINE BLOOD 1+ (NEGATIVE); URINE COLOR YELLOW; URINE GLUCOSE (UA) NEGATIVE (NEGATIVE); URINE KETONE NEGATIVE (NEGATIVE); URINE LEUK ESTERASE NEGATIVE (NEGATIVE); URINE NITRITE NEGATIVE (NEGATIVE); URINE PROTEIN NEGATIVE (NEGATIVE); URINE UROBILINOGEN NEGATIVE mg/dL (0.2-1.0)
[2017-06-28 23:28] LABS: EPI CELLS RARE /HPF (FEW); URINE BACTERIA RARE /hpf (NONE SEEN); URINE MUCUS RARE
[2017-06-29] MEDS: diazePAM 5 MG TABLET PO PRN ×4 (05:11→22:05)
[2017-06-29] MEDS: metFORMIN HCL 500 MG TABLET (FP) PO SCH ×2 (06:38→17:33)
--- NOTE | 2017-06-29 09:53 | PN ---
S COWS - Scale Resting Pulse: 0= [place] 80 or Below Sweatin= Chills/Flushing Restless Observation: 3= Extraneous Movement Pupil Size: 0= Normal to Room Light Bone or Joint Aches: 2= Severe Diffuse Aches Runny Nose/ Eye Tearin= Runny Nose/Eyes GI Upset > 30mins: 1= Stomach Cramp Tremor Observation of Outstretched Hands: 2= Slight Tremor Visible Yawning Observation: 2= >3x During Session Anxiety or Irritability: 2=Irritable/Anxious Goose Flesh Skin: 3=Piloerection COWS Score: 18 BHS Progress Note (SOAP) Subjective: JOINT ACHE SWEAT TREMOR RESTLESSNESS ANXITY RUNNING NOSE Objective: 06/29/17 09:52 Vital Signs Temperature 96.1 F L 06/29/17 06:28 Pulse Rate 55 L 06/29/17 06:28 Respiratory Rate 18 06/29/17 06:28 Blood Pressure 104/67 06/29/17 06:28 O2 Sat by Pulse Oximetry (%) Laboratory Last Values POC Glucometer 100 UNITS (80-120) 06/29/17 05:06 Urine Color Yellow 06/28/17 21:00 Urine Appearance Clear 06/28/17 21:00 Urine pH 5.0 (5.0-8.0) 06/28/17 21:00 Ur Specific [place] 1.025 (1.001-1.035) 06/28/17 21:00 Urine Protein Negative (NEGATIVE) 06/28/17 21:00 Urine Glucose (UA) Negative (NEGATIVE) 06/28/17 21:00 Urine Ketones Negative (NEGATIVE) 06/28/17 21:00 Urine Blood 1+ (NEGATIVE) H 06/28/17 21:00 Urine Nitrite Negative (NEGATIVE) 06/28/17 21:00 Urine Bilirubin Negative (NEGATIVE) 06/28/17 21:00 Urine Urobilinogen Negative mg/dL (0.2-1.0) 06/28/17 21:00 Ur Leukocyte Esterase Negative (NEGATIVE) 06/28/17 21:00 Urine WBC (Auto) 1 /hpf (3-5) 06/28/17 21:00 Urine RBC (Auto) 1 /hpf (0-3) 06/28/17 21:00 Ur Epithelial Cells Rare /HPF (FEW) 06/28/17 21:00 Urine Bacteria Rare /hpf (NONE SEEN) 06/28/17 21:00 Urine Mucus Rare 06/28/17 21:00 HIV 1&2 Antibody Screen Negative 06/28/17 12:00 HIV P24 Antigen Negative 06/28/17 12:00 LAB NOTED Assessment: 06/29/17 09:53 WITHDRAWAL SX Plan: CONTINUE DETOX
[2017-06-29] MEDS ORDERED: METHADONE HCL 10 MG TABLET (FOR DETOX USE ONLY) PO ONE (10:00)
[2017-06-29] MEDS: PRENATAL VITAMINS W/ FOLIC ACID TABLET (FP) PO SCH (10:11)
[2017-06-29] MEDS: NICOTINE 14 MG/24 HOURS TOPICAL PATCH TD SCH (10:12)
[2017-06-29 10:15] LABS: HEMATOCRIT 37.3 % (32.4-45.2); HEMOGLOBIN 11.9 GM/dL (10.7-15.3); MCH 27.5 pg (25.7-33.7); MCHC 31.9 g/dl (32.0-36.0); MEAN CELL VOLUME 86.2 fl (80-96); MEAN PLT VOLUME 9.6 fl (7.5-11.1); PLATELET COUNT 269 K/MM3 (134-434); RBC 4.33 M/mm3 (3.60-5.2); RDW 15.7 % (11.6-15.6); WHITE BLOOD COUNT 14.5 K/mm3 (4.0-10.0)
--- NOTE | 2017-06-29 12:17 | PN ---
S Progress Note Note: Psychiatric nurse practitioner note: Instrumentation Tech approached patient for psychiatric consultation this morning after several attempts yesterday and patient continues to refuse.
[2017-06-29] MEDS ORDERED: POTASSIUM CHLORIDE ORAL LIQUID 20 MEQ/15 ML PO SCH (12:40)
[2017-06-29 13:32] LABS: GLUCOSE,RANDOM 148 mg/dL (74-106)
[2017-06-29 13:33] LABS: ALBUMIN 3.3 g/dl (3.4-5.0); ANION GAP 9 (8-16); BILIRUBIN,TOTAL 0.3 mg/dL (0.2-1.0); BLOOD UREA NITROGEN 13 mg/dL (7-18); CALCIUM 7.8 mg/dL (8.5-10.1); CHLORIDE 103 mmol/L (98-107); CO2 26 mmol/L (21-32); CREATININE 0.9 mg/dL (0.55-1.02); POTASSIUM 3.9 mmol/L (3.5-5.1); SODIUM 138 mmol/L (136-145); TOT PROT 6.9 g/dl (6.4-8.2)
[2017-06-29 13:34] LABS: ALK PHOS 74 U/L (45-117); SGOT/AST 13 U/L (15-37); SGPT/ALT 13 U/L (12-78)
--- NOTE | 2017-06-29 16:01 | CONSULT ---
[facility] Psychiatric Consult - Data Date of interview: 06/29/17 Admission source: [facility] Identifying data: Pt. is a 52 year old single female, mother of one, unemployed , and currently homeless. This is one of multiple admissions to [facility]. Pt. admitted to for opiate and cocaine dependence. Substance Abuse History: Following information confirmed with Ms. Iniguez: Smoking Cessation. Smoking history: Current every day smoker. Have you smoked in the past 12 months: Yes. Aproximately how many cigarettes per day: 20. Cigars Per Day: 0. Hx Chewing Tobacco Use: No. Initiated information on smoking cessation: Yes. 'Breaking Loose' booklet given: 06/28/17. - Substance & Tx. History. Hx Alcohol Use: No. Hx Substance Use: Yes. Substance Use Type : Cocaine, Heroin. Hx Substance Use Treatment: Yes ([facility] 04/04/17 to 04/08/17) . - Substances Abused. Heroin. Route: Injection. Frequency: Daily. Amount used: 20 BAGS. Age of first use: 34. Date of Last Use: 06/27/17. Cocaine. Route: Injection. Frequency: 1-2 times per week. Amount used: $10. Age of first use: 34. Date of Last Use: 06/27/17 Medical History: cancer of uterus s/p hysterctomy,radiation and chemotherapy, COPD, Asthma, Seizures Psychiatric History: Patient's first encounter with a psychiatrist was approximately 10 years ago after being admitted to [facility] psychiatric unit. Patient's most recent psychiatric hospitalization was four months ago at [facility]. Pt. reports a diagnosis of panic attacks and PTSD. Claims a h/o being prescribed xanax, klonopin, ativan and adderall. Denies outpatient care. Pt. denies h/o suicide attempt. Physical/Sexual Abuse/Trauma History: Denies. Mental Status Exam - Mental Status Exam Alert and Oriented to: Time, Place, Person Cognitive Function: Good Patient Appearance: Unkempt Mood: Anxious Affect: Mood Congruent Patient Behavior: Crying (Tearful. ), Cooperative Speech Pattern: Appropriate Voice Loudness: Normal Thought Process: Goal Oriented Thought Disorder: Not Present Hallucinations: Denies Suicidal Ideation: Denies Homicidal Ideation: Denies Insight/Judgement: Poor Sleep: Fair Appetite: Fair Muscle strength/Tone: Normal Gait/Station: Normal Psychiatric Findings - Problem List ([place] 1, 2,3) (1) Cocaine dependence Current Visit: Yes Status: Chronic (2) Nicotine dependence Current Visit: Yes Status: Chronic Qualifiers: Nicotine product type: cigarettes Substance use status: uncomplicated Qualified Code(s): F17.210 - Nicotine dependence, cigarettes, uncomplicated (3) Opioid dependence Current Visit: Yes Status: Chronic (4) Opioid dependence with withdrawal Current Visit: Yes Status: Chronic (5) Substance induced mood disorder Current Visit: Yes Status: Acute - Initial Treatment Plan Initial Treatment Plan: Psychoeducation provided. Detoxification in progress. Seroquel 25mg qhs ordered. Benefits and side effects discussed. Verbal consent given.
[2017-06-29] MEDS ORDERED: QUEtiapine FUMARATE 25 MG TABLET (FP) PO SCH (22:00)
[2017-06-29] MEDS: THIAMINE HCL 100 MG TABLET (FP) PO SCH (22:05)
[2017-06-30] MEDS: metFORMIN HCL 500 MG TABLET (FP) PO SCH (07:23)
--- NOTE | 2017-06-30 09:55 | PN ---
BHS COWS - Scale Resting Pulse: 0= [place] 80 or Below Sweatin= Chills/Flushing Restless Observation: 1= Difficult to Sit Still Pupil Size: 2= Moderately Dilated Bone or Joint Aches: 2= Severe Diffuse Aches Runny Nose/ Eye Tearin= Nasal Congestion GI Upset > 30mins: 1= Stomach Cramp Tremor Observation of Outstretched Hands: 2= Slight Tremor Visible Yawning Observation: 2= >3x During Session Anxiety or Irritability: 2=Irritable/Anxious Goose Flesh Skin: 0=Smooth Skin COWS Score: 14 BHS Progress Note (SOAP) Subjective: gi distress sweat restlessness irritable agitative Objective: 06/30/17 09:54 Vital Signs Temperature 97.7 F 06/30/17 06:00 Pulse Rate 73 06/30/17 06:00 Respiratory Rate 18 06/30/17 06:30 Blood Pressure 96/60 06/30/17 06:00 O2 Sat by Pulse Oximetry (%) Laboratory Last Values WBC 14.5 K/mm3 (4.0-10.0) H D 06/29/17 05:45 RBC 4.33 M/mm3 (3.60-5.2) 06/29/17 05:45 Hgb 11.9 GM/dL (10.7-15.3) 06/29/17 05:45 Hct 37.3 % (32.4-45.2) 06/29/17 05:45 MCV 86.2 fl (80-96) 06/29/17 05:45 MCH 27.5 pg (25.7-33.7) 06/29/17 05:45 MCHC 31.9 g/dl (32.0-36.0) L 06/29/17 05:45 RDW 15.7 % (11.6-15.6) H 06/29/17 05:45 Plt Count 269 K/MM3 (134-434) 06/29/17 05:45 MPV 9.6 fl (7.5-11.1) 06/29/17 05:45 Sodium 138 mmol/L (136-145) 06/29/17 06:00 Potassium 3.9 mmol/L (3.5-5.1) 06/29/17 06:00 Chloride 103 mmol/L (98-107) 06/29/17 06:00 Carbon Dioxide 26 mmol/L (21-32) 06/29/17 06:00 Anion Gap 9 (8-16) 06/29/17 06:00 BUN 13 mg/dL (7-18) 06/29/17 06:00 Creatinine 0.9 mg/dL (0.55-1.02) 06/29/17 06:00 Creat Clearance w eGFR > 60 (>60) 06/29/17 06:00 POC Glucometer 120 UNITS (80-120) 06/30/17 06:26 Random Glucose 148 mg/dL (74-106) H 06/29/17 06:00 Calcium 7.8 mg/dL (8.5-10.1) L 06/29/17 06:00 Total Bilirubin 0.3 mg/dL (0.2-1.0) 06/29/17 06:00 AST 13 U/L (15-37) L 06/29/17 06:00 ALT 13 U/L (12-78) 06/29/17 06:00 Alkaline Phosphatase 74 U/L (45-117) 06/29/17 06:00 Total Protein 6.9 g/dl (6.4-8.2) 06/29/17 06:00 Albumin 3.3 g/dl (3.4-5.0) L 06/29/17 06:00 Urine Color Yellow 06/28/17 21:00 Urine Appearance Clear 06/28/17 21:00 Urine pH 5.0 (5.0-8.0) 06/28/17 21:00 Ur Specific [place] 1.025 (1.001-1.035) 06/28/17 21:00 Urine Protein Negative (NEGATIVE) 06/28/17 21:00 Urine Glucose (UA) Negative (NEGATIVE) 06/28/17 21:00 Urine Ketones Negative (NEGATIVE) 06/28/17 21:00 Urine Blood 1+ (NEGATIVE) H 06/28/17 21:00 Urine Nitrite Negative (NEGATIVE) 06/28/17 21:00 Urine Bilirubin Negative (NEGATIVE) 06/28/17 21:00 Urine Urobilinogen Negative mg/dL (0.2-1.0) 06/28/17 21:00 Ur Leukocyte Esterase Negative (NEGATIVE) 06/28/17 21:00 Urine WBC (Auto) 1 /hpf (3-5) 06/28/17 21:00 Urine RBC (Auto) 1 /hpf (0-3) 06/28/17 21:00 Ur Epithelial Cells Rare /HPF (FEW) 06/28/17 21:00 Urine Bacteria Rare /hpf (NONE SEEN) 06/28/17 21:00 Urine Mucus Rare 06/28/17 21:00 RPR Titer Nonreactive (NONREACTIVE) 06/29/17 05:45 HIV 1&2 Antibody Screen Negative 06/28/17 12:00 HIV P24 Antigen Negative 06/28/17 12:00 lab noted Assessment: 06/30/17 09:55 withdrawal sx Plan: continue detox
[2017-06-30] MEDS ORDERED: METHADONE HCL 5 MG TABLET (FOR DETOX USE ONLY) PO ONE (10:00)
[2017-06-30] MEDS: PRENATAL VITAMINS W/ FOLIC ACID TABLET (FP) PO SCH (10:56)
[2017-06-30] MEDS: NICOTINE 14 MG/24 HOURS TOPICAL PATCH TD SCH (10:57)
[2017-06-30] MEDS: diazePAM 5 MG TABLET PO PRN (10:58)
[2017-06-30] MEDS ORDERED: COLLOIDAL OATMEAL 1 BAR EACH TP PRN (11:32)
[2017-06-30 15:39] VITALS: BP 114/64; PULSE 70; TEMP 97.7
--- NOTE | 2017-06-30 16:53 | DS ---
[facility] Detox Discharge Summary Admission Date: 06/28/17 - History Present History: Cocaine Dependence, Opioid Dependence Pertinent Past History: Nicotine Dependence DM II Weight loss Substance induced mood d/o - Physical Exam Results Vital Signs: Vital Signs Temperature 97.7 F 06/30/17 15:37 Pulse Rate 70 06/30/17 15:37 Respiratory Rate 16 06/30/17 15:37 Blood Pressure 114/64 06/30/17 15:37 O2 Sat by Pulse Oximetry (%) Pertinent Admission Physical Exam Findings: Vital Signs Temperature 97.7 F 06/30/17 15:37 Pulse Rate 70 06/30/17 15:37 Respiratory Rate 16 06/30/17 15:37 Blood Pressure 114/64 06/30/17 15:37 O2 Sat by Pulse Oximetry (%) Laboratory Last Values WBC 14.5 K/mm3 (4.0-10.0) H D 06/29/17 05:45 RBC 4.33 M/mm3 (3.60-5.2) 06/29/17 05:45 Hgb 11.9 GM/dL (10.7-15.3) 06/29/17 05:45 Hct 37.3 % (32.4-45.2) 06/29/17 05:45 MCV 86.2 fl (80-96) 06/29/17 05:45 MCH 27.5 pg (25.7-33.7) 06/29/17 05:45 MCHC 31.9 g/dl (32.0-36.0) L 06/29/17 05:45 RDW 15.7 % (11.6-15.6) H 06/29/17 05:45 Plt Count 269 K/MM3 (134-434) 06/29/17 05:45 MPV 9.6 fl (7.5-11.1) 06/29/17 05:45 Sodium 138 mmol/L (136-145) 06/29/17 06:00 Potassium 3.9 mmol/L (3.5-5.1) 06/29/17 06:00 Chloride 103 mmol/L (98-107) 06/29/17 06:00 Carbon Dioxide 26 mmol/L (21-32) 06/29/17 06:00 Anion Gap 9 (8-16) 06/29/17 06:00 BUN 13 mg/dL (7-18) 06/29/17 06:00 Creatinine 0.9 mg/dL (0.55-1.02) 06/29/17 06:00 Creat Clearance w eGFR > 60 (>60) 06/29/17 06:00 POC Glucometer 113 UNITS (80-120) 06/30/17 16:22 Random Glucose 148 mg/dL (74-106) H 06/29/17 06:00 Calcium 7.8 mg/dL (8.5-10.1) L 06/29/17 06:00 Total Bilirubin 0.3 mg/dL (0.2-1.0) 06/29/17 06:00 AST 13 U/L (15-37) L 06/29/17 06:00 ALT 13 U/L (12-78) 06/29/17 06:00 Alkaline Phosphatase 74 U/L (45-117) 06/29/17 06:00 Total Protein 6.9 g/dl (6.4-8.2) 06/29/17 06:00 Albumin 3.3 g/dl (3.4-5.0) L 06/29/17 06:00 Urine Color Yellow 06/28/17 21:00 Urine Appearance Clear 06/28/17 21:00 Urine pH 5.0 (5.0-8.0) 06/28/17 21:00 Ur Specific [place] 1.025 (1.001-1.035) 06/28/17 21:00 Urine Protein Negative (NEGATIVE) 06/28/17 21:00 Urine Glucose (UA) Negative (NEGATIVE) 06/28/17 21:00 Urine Ketones Negative (NEGATIVE) 06/28/17 21:00 Urine Blood 1+ (NEGATIVE) H 06/28/17 21:00 Urine Nitrite Negative (NEGATIVE) 06/28/17 21:00 Urine Bilirubin Negative (NEGATIVE) 06/28/17 21:00 Urine Urobilinogen Negative mg/dL (0.2-1.0) 06/28/17 21:00 Ur Leukocyte Esterase Negative (NEGATIVE) 06/28/17 21:00 Urine WBC (Auto) 1 /hpf (3-5) 06/28/17 21:00 Urine RBC (Auto) 1 /hpf (0-3) 06/28/17 21:00 Ur Epithelial Cells Rare /HPF (FEW) 06/28/17 21:00 Urine Bacteria Rare /hpf (NONE SEEN) 06/28/17 21:00 Urine Mucus Rare 06/28/17 21:00 RPR Titer Nonreactive (NONREACTIVE) 06/29/17 05:45 HIV 1&2 Antibody Screen Negative 06/28/17 12:00 HIV P24 Antigen Negative 06/28/17 12:00 - Medication Discharge Medications: Ambulatory Orders metFORMIN HCL [Glucophage] 500 mg PO BID 10/03/12 Albuterol Sulfate Inhaler - [Ventolin Hfa Inhaler -] 2 inh PO Q4H PRN 06/28/17 - Diagnosis (1) Hepatitis C Current Visit: Yes Status: Acute (2) Substance induced mood disorder Current Visit: Yes Status: Acute (3) Cocaine dependence Current Visit: Yes Status: Chronic (4) Nicotine dependence Current Visit: Yes Status: Chronic Qualifiers: Nicotine product type: cigarettes Substance use status: uncomplicated Qualified Code(s): F17.210 - Nicotine dependence, cigarettes, uncomplicated (5) Opioid dependence with withdrawal Current Visit: Yes Status: Chronic (6) Weight decreased Current Visit: Yes Status: Active (7) ca of uterus,s/p hysterctomy,radiation and chemotherapy Current Visit: Yes Status: Active (8) Weight loss Current Visit: No Status: Acute (9) COPD (chronic obstructive pulmonary disease) Current Visit: Yes Status: Chronic Qualifiers: COPD type: emphysema Emphysema type: panlobular Qualified Code(s): J43.1 - Panlobular emphysema (10) Constipation Current Visit: Yes Status: Chronic Qualifiers: Constipation type: slow transit constipation Qualified Code(s): K59.01 - Slow transit constipation (11) DM Diabetes mellitus type 2 Current Visit: No Status: Chronic (12) Diabetes mellitus type II, controlled Current Visit: Yes Status: Chronic Qualifiers: Diabetes mellitus complication status: without complication Diabetes mellitus chcf insulin use: without chcf use Qualified Code(s): E11.9 - Type 2 diabetes mellitus without complications - AMA Did Patient Leave Against Medical Advice: Yes (Benefits and risk discussed. )
[2017-06-30] MEDS ORDERED: MINERAL OIL/PETROLAT/WATER TOPICAL CREAM 113 GM JAR TP SCH (22:00)
[2017-07-01] MEDS ORDERED: METHADONE HCL 5 MG TABLET (FOR DETOX USE ONLY) PO ONE (10:00)
[2017-07-02] MEDS ORDERED: METHADONE HCL 10 MG TABLET (FOR DETOX USE ONLY) PO ONE (10:00)
[2017-07-03] MEDS ORDERED: METHADONE HCL 5 MG TABLET (FOR DETOX USE ONLY) PO ONE (06:00)
== END 2017-06-30 16:55 | disposition left against medical advice (07) | DRG 770 ==
LOC: YASAS 11:27 → Y6N 13:54
PROVIDERS: ADMIT Internal Medicine; ATTEND Internal Medicine
PROC: HZ2ZZZZ Detoxification Services for Substance Abuse Treatment (ICD-10-PCS; principal; 2017-06-28)
DX: F11.23 Opioid dependence with withdrawal (principal); F14.20 Cocaine dependence, uncomplicated; F17.210 Nicotine dependence, cigarettes, uncomplicated; F19.24 Other psychoactive substance dependence with psychoactive substance-induced mood disorder; F41.8 Other specified anxiety disorders; G47.00 Insomnia, unspecified; B18.2 Chronic viral hepatitis C; G40.909 Epilepsy, unspecified, not intractable, without status epilepticus; J43.1 Panlobular emphysema; J45.909 Unspecified asthma, uncomplicated; K59.01 Slow transit constipation; E11.9 Type 2 diabetes mellitus without complications; Z85.42 Personal history of malignant neoplasm of other parts of uterus; Z79.84 Long term (current) use of oral hypoglycemic drugs; Z92.21 Personal history of antineoplastic chemotherapy; Z92.3 Personal history of irradiation; Z87.898 Personal history of other specified conditions; Z88.5 Allergy status to narcotic agent
CPT/HCPCS: 36415; 80053; 81003; 81015; 82962; 85027; 86593; 87389; 93005; 93010